=== PATIENT | male | born 2000 | race Two or more races ===

== ENCOUNTER 2024-02-19 12:56 | Emergency (ER) | payer MEDICAID, OTHER ==
[~2024-02-19] VITALS: Ht 170.2 cm; Wt 75.5 kg
[2024-02-19 13:23] VITALS: BP 126/75; PULSE 88; RESP 18; O2SAT 97
[2024-02-19] MEDS ORDERED: NABU-72 PO (17:23)
== END 2024-02-19 17:34 | disposition home or self-care (01) ==
LOC: ER 12:56
DX: R51.9 Headache, unspecified (principal)
CPT/HCPCS: 70450